=== PATIENT | male | born 1970 | race Caucasian/White ===

== ENCOUNTER 2017-10-26 10:11 | Inpatient (IN) | payer OTHER, MEDICAID ==
--- NOTE | 2017-10-26 10:27 | CPEKG ---
Heart Rate: 44 RR Interval: 1364 P-R Interval: 160 QRSD Interval: 88 QT Interval: 472 QTC Interval: 404 P [place]: 53 QRS [place]: 64 T Wave [place]: 47 EKG Severity - OTHERWISE NORMAL ECG - EKG Impression: SINUS BRADYCARDIA Electronically Signed By: Reza Wright 26-Oct-2017 15:36:57
--- NOTE | 2017-10-26 10:36 | EDPHY ---
H & P Time Seen by Provider: 10/26/17 10:14 HPI/ROS: CHIEF COMPLAINT: Chest pain HISTORY OF PRESENT ILLNESS: 47-year-old male presents to the emergency department complaining of chest pain that began around 9 o'clock this morning. The patient is in [place] to finish up his: [employer]. He is from [place]. He drove from [place] just 3 days ago. He states that he [facility] into [facility] thinking that he could get his medications refilled and when they told that he could not, the patient thinks that he had a panic attack. He developed pain in his chest and felt short of breath. These symptoms have now mostly resolved although not completely gone. He has a history of hypertension and is on multiple different medications. He has had some swelling in his lower legs. He denies numbness or tingling in his upper or lower extremities. Denies abdominal pain or vomiting. No headache. No neck pain. He has had panic attacks in the past although these have never been diagnosed. He does not take medication for this. The patient is prescribed multiple different medications for hypertension. He was on atenolol, however has not been taking this since his new medications were started over 1 month ago. However today while he was at the clinic when he was feeling pain in his chest and anxious, he took 50 mg of atenolol prior to arrival. REVIEW OF SYSTEMS: Constitutional: No fever, no chills. Eyes: No double or blurry vision. ENT: No sore throat. Respiratory: Shortness of breath as above. No cough. Cardiac: Chest pain as above Gastrointestinal: No abdominal pain, vomiting or diarrhea. Genitourinary: No dysuria. Musculoskeletal: No neck or back pain. Skin: No rashes. Neurological: No headache. Past Medical/Surgical History: Hypertension Family medical history: Father had a stroke in his 40s. Social History: Single. From [place]. Currently staying at the long-term in [place]. Smoking Status: Current every day smoker Physical Exam: General Appearance: Alert, no distress. 178/88, heart rate 47, 97% on room air. Eyes: Pupils equal and round. Extraocular motions are all intact. ENT: Mouth: Mucous membranes moist. Respiratory: No wheezing, rhonchi, or rales, lungs are clear to auscultation. Cardiovascular: Regular rate and rhythm. Gastrointestinal: Abdomen is soft and nontender, no masses, no rebound or guarding, bowel sounds normal. Neurological: Alert and oriented x 3, cranial nerves II through XII grossly intact Skin: Warm and dry, no rashes. Musculoskeletal: Nontender to palpate along the cervical, thoracic or lumbar spine. Neck is supple. Extremities: Full range of motion and no peripheral edema. Psychiatric: Patient is oriented X 3, there is no agitation. Constitutional: Initial Vital Signs Temperature (C) 36.7 C 10/26/17 10:15 Heart Rate 47 L 10/26/17 10:15 Respiratory Rate 20 10/26/17 10:15 Blood Pressure 178/88 H 10/26/17 10:15 O2 Sat (%) 97 10/26/17 10:15 O2 Delivery Mode Room Air Allergies/Adverse Reactions: morphine Allergy (Verified 10/26/17 10:21) Home Medications: Medication Instructions Recorded Fluticasone Nasal [Flonase Nasal 1 sprays NASAL DAILY PRN 10/26/17 [place] (RX)] Gabapentin [Neurontin 100 MG (*)] 100 mg PO TID 10/26/17 Hydrochlorothiazide [HCTZ (*)] 25 mg PO DAILY 10/26/17 [place] Carbonate [[place] 600 mg PO BID 10/26/17 Carbonate Cap 300 mg (*)] Metformin HCl [Fortamet] 500 mg PO DAILY 10/26/17 Valsartan [Diovan (*)] 320 mg PO DAILY 10/26/17 amLODIPine BESYLATE [Norvasc 5 mg 10 mg PO HS 10/26/17 (*)] Medical Decision Making - Diagnostics Imaging Results: Imaging Impressions Chest X-Ray 10/26/17 10:33 Impression: 1. No source for acute chest pain identified. 2. DISH 3. Distal left clavicular head erosive change. If there is no history for decompressive surgery in this location, then consider excluding hyperparathyroidism or other erosive arthritides. Chest/Thorax CTA 10/26/17 10:59 Impression: 1. Right middle and lower lobe segmental and subsegmental pulmonary emboli. Possible mild right heart strain. 2. Pleural-based 4.9 mm right lower lobe nodule. If patient is at high-risk, would consider 12 month follow-up CT. Findings communicated to Dr. Ochoa at 11:20 AM on 10/26/2017. Imaging: Discussed imaging studies w/ call center support consultant Radiologist, I viewed and interpreted images myself ED Course/Re-evaluation: 39-year-old male presents to the emergency department by ambulance with chest pain thinking that he had an anxiety attack. Laboratory studies were drawn patient had normal troponin. He did however have elevated D-dimer at 0.69. I discussed the pros and cons of CT imaging of his chest including radiation exposure the patient agrees with CT angiogram. CT pulmonary angiogram reveals 1. Right middle and lower lobe segmental and subsegmental pulmonary emboli. Possible mild right heart strain. 2. Pleural- based 4.9 mm right lower lobe nodule. If patient is at high-risk, would consider 12 month follow-up CT. IV heparin was ordered. Patient will be admitted to the hospitalist the PCU floor. The case was discussed with Dr. Pamella Foster, secondary supervising physician , who did not directly evaluate the patient but agrees with treatment and plan. Differential Diagnosis: Chest pain including but not limited to myocardial ischemia, pulmonary embolus, chest wall pain, pleural inflammation and pulmonary infectious causes. - Data Points Laboratory Results: Laboratory Results 10/26/17 10:10 10/26/17 10:10 10/26/17 10/26/17 10/26/17 10:37 10:10 10:10 WBC RBC Hgb Hct MCV MCH MCHC RDW Plt Count MPV Neut % (Auto) Lymph % (Auto) Becker % (Auto) Eos % (Auto) Baso % (Auto) Nucleat RBC Rel Count Absolute Neuts (auto) Absolute Lymphs (auto) Absolute Monos (auto) Absolute Eos (auto) Absolute Basos (auto) Absolute Nucleated RBC Immature Gran % Immature Gran # PT 12.4 SEC SEC (12.0-15.0) INR 0.90 (0.83-1.16) APTT 27.4 SEC SEC (23.0-38.0) D-Dimer Sodium 139 mEq/L mEq/L (135-145) Potassium 3.7 mEq/L mEq/L (3.3-5.0) Chloride 107 mEq/L mEq/L (97-110) Carbon Dioxide 27 mEq/l mEq/l (22-31) Anion Gap 5 mEq/L L mEq/L (8-16) BUN 15 mg/dL mg/dL (7-23) Creatinine 0.7 mg/dL mg/dL (0.7-1.3) Estimated GFR > 60 Glucose 90 mg/dL mg/dL (70-100) Calcium 9.6 mg/dL mg/dL (8.5-10.4) POC Troponin I 0.01 ng/mL ng/mL (0.00-0.08) 10/26/17 10/26/17 10:10 10:10 WBC 11.16 10^3/uL H 10^3/uL (3.80-9.50) RBC 4.52 10^6/uL 10^6/uL (4.40-6.38) Hgb 14.2 g/dL g/dL (13.7-17.5) Hct 41.2 % % (40.0-51.0) MCV 91.2 fL fL (81.5-99.8) MCH 31.4 pg pg (27.9-34.1) MCHC 34.5 g/dL g/dL (32.4-36.7) RDW 14.2 % % (11.5-15.2) Plt Count 259 10^3/uL 10^3/uL (150-400) MPV 10.8 fL fL (8.7-11.7) Neut % (Auto) 61.2 % % (39.3-74.2) Lymph % (Auto) 28.4 % % (15.0-45.0) Becker % (Auto) 6.3 % % (4.5-13.0) Eos % (Auto) 2.8 % % (0.6-7.6) Baso % (Auto) 1.0 % % (0.3-1.7) Nucleat RBC Rel Count 0.0 % % (0.0-0.2) Absolute Neuts (auto) 6.84 10^3/uL H 10^3/uL (1.70-6.50) Absolute Lymphs (auto) 3.17 10^3/uL H 10^3/uL (1.00-3.00) Absolute Monos (auto) 0.70 10^3/uL 10^3/uL (0.30-0.80) Absolute Eos (auto) 0.31 10^3/uL 10^3/uL (0.03-0.40) Absolute Basos (auto) 0.11 10^3/uL H 10^3/uL (0.02-0.10) Absolute Nucleated RBC 0.00 10^3/uL 10^3/uL (0-0.01) Immature Gran % 0.3 % % (0.0-1.1) Immature Gran # 0.03 10^3/uL 10^3/uL (0.00-0.10) PT INR APTT D-Dimer 0.69 ug/mLFEU H ug/mLFEU (0.00-0.50) Sodium Potassium Chloride Carbon Dioxide Anion Gap BUN Creatinine Estimated GFR Glucose Calcium POC Troponin I Medications Given: Discontinued Medications Heparin Sodium (Porcine) (Heparin Injection) 0 unit IVP EDNOW ONE Stop: 10/26/17 11:50 Last Admin: 10/26/17 12:05 Dose: 8,320 units Heparin Sodium (Porcine) (Heparin 50 Units/Ml (Premix)) 500 mls @ 0 mls/hr IV EDNOW ONE; Per Protocol PRN Reason: Protocol Stop: 10/26/17 11:50 Last Admin: 10/26/17 12:04 Dose: 500 mls Point of Care Test Results: Chemistry 10/26/17 10:37 POC Troponin I 0.01 ng/mL ng/mL (0.00-0.08) Departure - Departure Disposition: [facility] Clinical Impression: Pulmonary embolism Qualifiers: Pulmonary embolism type: other Chronicity: acute Acute cor pulmonale presence: with acute cor pulmonale Qualified Code(s): I26.09 - Other pulmonary embolism with acute cor pulmonale Condition: Good
[2017-10-26 10:39] LABS: PLATELET COUNT 259 10^3/uL (150-400)
[2017-10-26] MEDS ORDERED: IOPAMIDOL (ISOVUE 370) 100 ML BTL IV ONE (11:03)
[2017-10-26] MEDS ORDERED: HEPARIN 10,000 UNIT/10 ML MDV (1,000 UNIT/ML) IVP ONE (11:49)
[2017-10-26] MEDS ORDERED: HEPARIN/DEXTROSE 500 ML IV ONE (11:49)
[2017-10-26 12:16] LABS: INR 0.9 (0.83-1.16); PROTIME(PATIENT) 12.4 SEC (12.0-15.0)
--- NOTE | 2017-10-26 12:47 | ASMTLACE ---
KAMRAN Acuity / Level of Answers: Yes Care: Did the patient have an inpatient admission? # of Emergency department Answers: 1-2 visits in the last 6 months Score: 4 Date Signed: 10/26/2017 12:47 PM Electronically Signed By:Olivia Campos RN
[2017-10-26] MEDS ORDERED: FLUTICASONE NASAL 120 SPRAYS/16 GM MDI EACHNARE PRN (14:06)
[2017-10-26] MEDS ORDERED: amLODIPine BESYLATE 5 MG TAB PO SCH ×2 (14:15→21:00)
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
--- NOTE | 2017-10-26 15:11 | PDMN ---
Medical Necessity Medical necessity: Pt meets inpt criteria per MDS order and MCG M-290, Pulmonary Embolism, A-4 days. Pt admitted with chest pain, acute pulm embolism, elev D-Dimer at .69, hypertensive- 178/88, initially on Heparin gtt, CTA showing pulm emboli and possible mild R heart strain. Pt has hx of anxiety/ panic attacks and bipolar disease w/psychotic tendencies, recent inpt psych hospitalization, inpt psychologist social consult pending. Med nec for ongoing inpt monitoring and treatment.
[2017-10-26] MEDS: GABAPENTIN 100 MG CAP PO SCH ×2 (15:25→20:59)
[2017-10-26] MEDS: ACETAMINOPHEN 325 MG TAB PO PRN (15:29)
[2017-10-26] MEDS: HYDROCHLOROTHIAZIDE 25 MG TAB PO SCH (15:37)
[2017-10-26] MEDS ORDERED: HEPARIN/DEXTROSE 500 ML IV SCH (16:30)
[2017-10-26] MEDS: RIVAROXABAN 15 MG TAB PO SCH (18:17)
[2017-10-26] MEDS: LITHIUM CARBONATE 300 MG CAP PO SCH (20:59)
[2017-10-26] MEDS ORDERED: ENOXAPARIN 120 MG/0.8 ML SYR SC SCH (21:00)
[2017-10-27 05:07] LABS: PLATELET COUNT 241 10^3/uL (150-400)
[2017-10-27] MEDS: ACETAMINOPHEN 325 MG TAB PO PRN (05:23)
[2017-10-27 07:35] VITALS: BP 143/87
[2017-10-27] MEDS: LITHIUM CARBONATE 300 MG CAP PO SCH (08:01)
[2017-10-27] MEDS: RIVAROXABAN 15 MG TAB PO SCH (08:02)
[2017-10-27] MEDS: GABAPENTIN 100 MG CAP PO SCH (08:02)
[2017-10-27] MEDS: HYDROCHLOROTHIAZIDE 25 MG TAB PO SCH (08:02)
[2017-10-27] MEDS ORDERED: VALSARTAN 160 MG TAB PO SCH (09:00)
--- NOTE | 2017-10-27 09:54 | GDS ---
[f rep st] DISCHARGE SUMMARY DIAGNOSES: 1. Small asymptomatic pulmonary embolus. 2. Pulmonary nodule. 3. Hypertension. 4. Bipolar disease with psychotic tendencies. 5. Anxiety and panic attacks. 6. Prediabetes. PROCEDURES DONE: CT angiogram of the chest: Right middle and lower lobe segmental and subsegmental pulmonary emboli, pleural-based 4.9 right lower lobe nodule. Consider followup CT in 12 months. HOSPITAL COURSE: The patient is a 47-year-old man, recently relocated from [place]. He was hospitaliz ed there for a month due to suicidal ideation and depression. After getting out of the hospital, he got in his car and drove to [place], he was trying to get set up with a primary care physician and [facility] his blood pressure medications refilled, when he had a panic attack and chest pain and went to the ER. He had a minimally elevated D-dimer which led to a CT angiogram, which revealed [id number] e-size pulmonary emboli. He was hemodynamically stable. His chest pain has completely resolved and I suspect that his pain was more related to anxiety and panic and the pulmonary embolism was an incid ental finding. At this time, he is started on Xarelto and will finish a 6-month therapy. His main i ssue is his homelessness and the fact that he needs a primary care provider to refill his blood press ure medicines, as well as his psychiatric medications. Prior to discharge, Case Management will help the patient set up some followup as an outpatient and the number to call for [facility]. He is currently stable and not suicidal. CONDITION ON DISCHARGE: Good. PHYSICAL EXAMINATION: VITAL SIGNS: Stable. Blood pressure is 143/80 with a heart rate of 51. He i s afebrile. GENERAL: He is pleasant. He has no chest pain. HEART: Regular. LUNGS: Clear. DISCHARGE MEDICATIONS: Please see discharge medication form. These will include his home medication s, amlodipine 10 mg daily, gabapentin 100 t.i.d., hydrochlorothiazide 25 daily, lithium 600 b.i.d., X arelto 15 b.i.d. for 21 days and 20 daily, valsartan 320 daily, and metformin 500 mg daily. FOLLOWUP INSTRUCTIONS: Case Management will help the patient set up a followup appointment with [facility]. He also needs contact information for [facility] prior to discharge. /[id number]/MODL
--- NOTE | 2017-10-27 12:54 | ASMTCASEMG ---
Living Arrangements What is your living Answers: Alone arrangement? Who do you live with? Type Of Residence What kind of residence do Answers: Homeless you live in? Discharge Plan Comments Coordination Status Comments Notes: CM spoke to Dr. Martinez regarding d/c POC. Pt is a 47 y/o man admitted for a panic attack and chest pain. Pt is being discharged today. CM made a [facility] appointment for pt. CM provided pt w/ a 2 bus passes. CM provided pt w/ phone number for [facility]. CM reserved a correction bed for pt. CM mapped his medications ($25). Pt reports that he does not have any money. Referral made to [facility]. Ericka from [employer] will screen him for Medicaid. No other needs identified at this time. CM available for changes. Plan: Independent Date Signed: 10/27/2017 12:53 PM Electronically Signed By:AILYN Lewis
== END 2017-10-27 12:45 | disposition home or self-care (01) | DRG 880 ==
LOC: F3E 12:56
PROVIDERS: ADMIT Internal Medicine; ATTEND Internal Medicine
DX: F41.0 Panic disorder [episodic paroxysmal anxiety] (principal); I26.99 Other pulmonary embolism without acute cor pulmonale; R91.1 Solitary pulmonary nodule; I10 Essential (primary) hypertension; F31.9 Bipolar disorder, unspecified; R73.03 Prediabetes; Z59.0 Homelessness; F17.210 Nicotine dependence, cigarettes, uncomplicated
CPT/HCPCS: 84484-PO; 96365; J1644; Q9967

== ENCOUNTER 2018-02-13 11:24 | Emergency (ER) | payer OTHER, MEDICAID ==
--- NOTE | 2018-02-13 11:57 | EDPHY ---
HPI/HX/ROS/PE/MDM Narrative: CHIEF COMPLAINT: Tooth pain HPI: The patient is a 47-year-old male with a history of bipolar disorder and extremely poor dentition. He complains of pain and swelling to the upper premolar region and upper medial maxilla which started yesterday. The patient was seen by his doctor, Dea Lovelace, this morning who recommended he go to the ER to undergo a CT scan. The patient denies fever. He denies recent injury. REVIEW OF SYSTEMS: Aside from elements discussed in the HPI, a comprehensive 10-point review of systems was reviewed and is negative. PMH: Includes bipolar, poor dentition, pre-diabetes SOCIAL HISTORY:alcoholic, smoker PHYSICAL EXAM: General:Patient is alert, in no acute distress. ENT: Extremely poor dentition noted throughout. There is tenderness and swelling to the gum in the left upper premolar region which corresponds to tenderness on the outside of the face and same region. There is no tongue elevation or other soft tissue swelling of the mouth. Neck: Normal inspection. Full range of motion. Respiratory:No respiratory distress. Breath sounds normal bilaterally. Cardiovascular: Regular rate and rhythm. Strong peripheral pulses. Normal cap refill. Abdomen:The abdomen is nontender to palpation. There are no peritoneal signs. There are normal bowel sounds. Back: Normal to inspection. No tenderness to palpation. Skin: Normal color. No rash. Warm and dry. Extremities: Normal appearance. Full range of motion. Neuro: Oriented x3. Normal motor function. Normal sensory function. ED Course: 47-year-old male presents with pain and swelling to the upper premolar region and upper medial maxilla which started yesterday. He arrives at the request of his primary care provider for maxillofacial CT for further evaluation. On exam, there is extremely poor dentition noted throughout. There is tenderness and swelling to the gum in the left upper premolar region which corresponds to tenderness on the outside of the face and same region. Plan for CT, labs including CBC, chemistries. WBC elevated at 12,000. Labs otherwise largely unremarkable. 13:[address] Mitchell, radiologist. Multiple maxillary and mandibular abscesses noted on CT. See radiologist report below. 13:[address] Lee, oral surgeon. She will follow up with the patient in her office on Thursday. Reassessed patient. Discussed results and plan. Plan to discharge home in good condition with referral to oral surgery as above. Follow up and return precautions discussed. The patient is comfortable with this plan. MDM: This patient presents with multiple odontogenic abscesses. There are no signs of sepsis or Jama's angina, and I do not think admission to the hospital is indicated at this time, although patient will need to be careful to follow-up as scheduled with Oral Surgery. IM PCN given per Oral Surgeon. - Data Points Imaging Results: Imaging Impressions Face CT 02/13/18 11:55 Impression: 1. Multiple bilateral maxillary abscesses. There are also small periapical abscesses anteriorly within the mandible. 2. Chronic mucoperiosteal thickening, left maxillary sinus. Results called to Dr. Rodriguez at 1:00 PM. Imaging: Discussed imaging studies w/ yard caller Radiologist Laboratory Results: Laboratory Results 02/13/18 11:45 02/13/18 11:45 02/13/18 02/13/18 11:45 11:45 WBC 12.16 10^3/uL H 10^3/uL (3.80-9.50) RBC 4.99 10^6/uL 10^6/uL (4.40-6.38) Hgb 15.3 g/dL g/dL (13.7-17.5) Hct 44.3 % % (40.0-51.0) MCV 88.8 fL fL (81.5-99.8) MCH 30.7 pg pg (27.9-34.1) MCHC 34.5 g/dL g/dL (32.4-36.7) RDW 13.2 % % (11.5-15.2) Plt Count 254 10^3/uL 10^3/uL (150-400) MPV 10.4 fL fL (8.7-11.7) Neut % (Auto) 58.0 % % (39.3-74.2) Lymph % (Auto) 30.3 % % (15.0-45.0) [place] % (Auto) 8.6 % % (4.5-13.0) Eos % (Auto) 2.0 % % (0.6-7.6) Baso % (Auto) 0.8 % % (0.3-1.7) Nucleat RBC Rel Count 0.0 % % (0.0-0.2) Absolute Neuts (auto) 7.04 10^3/uL H 10^3/uL (1.70-6.50) Absolute Lymphs (auto) 3.69 10^3/uL H 10^3/uL (1.00-3.00) Absolute Monos (auto) 1.05 10^3/uL H 10^3/uL (0.30-0.80) Absolute Eos (auto) 0.24 10^3/uL 10^3/uL (0.03-0.40) Absolute Basos (auto) 0.10 10^3/uL 10^3/uL (0.02-0.10) Absolute Nucleated RBC 0.00 10^3/uL 10^3/uL (0-0.01) Immature Gran % 0.3 % % (0.0-1.1) Immature Gran # 0.04 10^3/uL 10^3/uL (0.00-0.10) Sodium 140 mEq/L mEq/L (135-145) Potassium 4.1 mEq/L mEq/L (3.3-5.0) Chloride 103 mEq/L mEq/L (97-110) Carbon Dioxide 26 mEq/l mEq/l (22-31) Anion Gap 11 mEq/L mEq/L (6-14) BUN 13 mg/dL mg/dL (7-23) Creatinine 0.7 mg/dL mg/dL (0.7-1.3) Estimated GFR > 60 Glucose 114 mg/dL H mg/dL (70-100) Calcium 9.7 mg/dL mg/dL (8.5-10.4) Medications Given: Discontinued Medications Penicillin G Benzathine (Bicillin L-A) 2,400,000 unit IM EDNOW ONE PRN Reason: Protocol Stop: 02/13/18 13:37 Last Admin: 02/13/18 14:15 Dose: 2,400,000 unit General Time Seen by Provider: 02/13/18 11:42 Initial Vital Signs: Initial Vital Signs Temperature (C) 36.8 C 02/13/18 11:32 Heart Rate 65 02/13/18 11:32 Respiratory Rate 17 02/13/18 11:32 Blood Pressure 147/81 H 02/13/18 11:32 O2 Sat (%) 95 02/13/18 11:32 O2 Delivery Mode Room Air Allergies/Adverse Reactions: morphine Allergy (Verified 02/13/18 11:31) Home Medications: Medication Instructions Recorded Fluticasone Nasal [Flonase Nasal 1 sprays NASAL DAILY PRN 10/26/17 [place]] Gabapentin [Neurontin 100 MG (*)] 100 mg PO TID #90 cap 10/27/17 Hydrochlorothiazide [HCTZ (*)] 25 mg PO DAILY #30 tab 10/27/17 Metformin HCl [Fortamet] 500 mg PO DAILY #30 tab.er.24 10/27/17 Rivaroxaban [Xarelto 15mg (*)] 15 mg PO BIDMEAL tab 10/27/17 Valsartan [Diovan (*)] 320 mg PO DAILY #60 tab 10/27/17 amLODIPine BESYLATE [Norvasc 5 mg 10 mg PO HS #30 tab 10/27/17 (*)] Abilify 02/13/18 Departure - Departure Disposition: Home, Routine, Self-Care Clinical Impression: Abscess of maxilla, Mandibular abscess Condition: Good Instructions: Dental Abscess (ED), Abscess (ED) Additional Instructions: Follow up with Dr. Lee, oral surgeon, on Thursday without fail. Call her office Thursday morning for an appointment. The phone number is [phone]. Return to the emergency department for fever, worsening pain, difficulty breathing or swallowing, or other worsening of condition. Referrals: Lise Hernandez MD [Primary Care Provider] - As per Instructions Blanka Lee DDS [Doctor of Dental Surgery] - As per Instructions Report Scribed for: Manohar Rodriguez Report Scribed by: Maria Eugenia Abraham Date of Report: 02/13/18 Time of Report: 13:33
[2018-02-13 12:00] LABS: PLATELET COUNT 254 10^3/uL (150-400)
[2018-02-13] MEDS ORDERED: IOPAMIDOL (ISOVUE-300) 100 ML BTL ONE (12:19)
[2018-02-13] MEDS ORDERED: BICILLIN L-A 1200000 UNIT/2 ML SYRINGE IM ONE (13:36)
[2018-02-13 14:56] VITALS: BP 159/75
== END 2018-02-13 14:56 | disposition home or self-care (01) ==
DX: M27.2 Inflammatory conditions of jaws (principal); K08.89 Other specified disorders of teeth and supporting structures; F17.200 Nicotine dependence, unspecified, uncomplicated; F10.20 Alcohol dependence, uncomplicated; R73.03 Prediabetes
CPT/HCPCS: 70487; 96372; 99285; J0561; Q9967